=== PATIENT | female | born 2000 | race Caucasian/White ===

== ENCOUNTER 2021-09-28 09:45 | Emergency (ER) | payer OTHER ==
[2021-09-28] MEDS ORDERED: Ketorolac Tromethamine 30 MG/ML VIAL ONE (11:06)
== END 2021-09-28 11:38 | disposition home or self-care (01) ==
LOC: CSHERS 09:45
DX: R07.2 Precordial pain (principal)
CPT/HCPCS: 71045; 93005; 96372; J1885